=== PATIENT | female | born 1975 | race Caucasian/White ===

== ENCOUNTER 2024-07-10 08:54 | Emergency (ER) | payer MEDICAID ==
[2024-07-10] MEDS: Nitroglycerin 0.4 MG Tab.SL SL ONE (09:06)
[2024-07-10 09:13] LABS: BASOPHILS ABSOLUTE AUTO 0.05 10^3/uL (0.00-0.50); BASOPHILS PERCENT AUTO 0.4 % (0-1); EOSINOPHILS ABSOLUTE AUTO 0.13 10^3/uL (0.00-1.50); HEMATOCRIT 44.9 % (37.0-47.0); HEMOGLOBIN 14.6 g/dL (12.0-16.0); IMMATURE GRAN ABSOLUTE AUTO 0.02 10^3/uL (0.00-0.49); IMMATURE GRAN PERCENT AUTO 0.2 % (0.0-4.9); LYMPHOCYTES ABSOLUTE AUTO 3.42 10^3/uL (0.60-5.00); LYMPHOCYTES PERCENT AUTO 26.6 % (24-44); MEAN CORPUSCULAR HEMOGLOBIN 27.2 pg (27.0-32.0); MEAN CORPUSCULAR HGB CONC 32.5 g/dL (32.0-36.0); MEAN CORPUSCULAR VOLUME 83.6 fL (83.0-97.0); NEUTROPHILS ABSOLUTE AUTO 8.32 x10^3/uL (1.80-8.00); NEUTROPHILS PERCENT AUTO 64.8 % (41-71); PLATELET COUNT,PLT 372 10^3/uL (150-400); RED BLOOD CELL COUNT 5.37 x10^6/uL (4.00-5.50); WHITE BLOOD CELL COUNT,WBC 12.8 10^3/uL (4.0-11.0)
[2024-07-10 09:25] LABS: APPEARANCE,URINE CLEAR (CLEAR); BILIRUBIN,URINE NEGATIVE (NEGATIVE); COLOR,URINE YELLOW (YELLOW); GLUCOSE,URINE 500 mg/dL (NEGATIVE); KETONES,URINE NEGATIVE (NEGATIVE); LEUKOCYTE ESTERASE,URINE NEGATIVE (NEGATIVE); NITRITE,URINE NEGATIVE (NEGATIVE); OCCULT BLOOD,URINE NEGATIVE (NEGATIVE); PH,URINE 7.5 (4.5-8.0); PROTEIN,URINE NEGATIVE (NEGATIVE); UROBILINOGEN,URINE 0.2 EU/dL (0.2-1.0)
[2024-07-10 09:29] LABS: ALANINE AMINOTRANSFERASE,ALT 29 U/L (12-78); ALBUMIN 3.6 g/dL (3.4-5.0); ALKALINE PHOSPHATASE 119 U/L (46-116); ASPARTATE AMNIOTRANSFERASE,AST 11 U/L (15-37); BILIRUBIN TOTAL 0.2 mg/dL (0.0-1.0); BLOOD UREA NITROGEN,BUN 23 mg/dL (7-18); CALCIUM 9.3 mg/dL (8.4-10.1); CARBON DIOXIDE,CO2 30 mmol/L (21-32); CHLORIDE,CL 98 mEq/L (98-106); CREATININE 0.8 mg/dL (0.6-1.0); LIPASE 80 U/L (16-77); MAGNESIUM 1.7 mg/dL (1.8-2.4); POTASSIUM,K 4.1 mEq/L (3.5-5.0); PROTEIN TOTAL,TP 7.8 g/dL (6.4-8.2); SODIUM,NA 137 mEq/L (136-145)
[2024-07-10 09:32] LABS: ESTIMATED GFR 92 mL/min (>=60); GLUCOSE RANDOM 319 mg/dL (75-99)
[2024-07-10 09:35] LABS: INR 0.93 (0.92-1.18); PROTHROMBIN TIME 9.8 SEC (9.3-11.3); PTT,PARTIAL THROMBOPLSTIN TIME 23.8 SEC (20.0-30.0)
[2024-07-10] MEDS ORDERED: Naloxone 2 MG/2 ML Syringe IVPUSH PRN (09:36)
[2024-07-10] MEDS: Morphine 2 MG/ML SYRINGE IVPUSH ONE (09:57)
== END 2024-07-10 10:45 | disposition home or self-care (01) ==
LOC: CC.ED 08:54
DX: R07.89 Other chest pain (principal); I10 Essential (primary) hypertension; Z86.73 Personal history of transient ischemic attack (TIA), and cerebral infarction without residual deficits; E11.9 Type 2 diabetes mellitus without complications; Z79.899 Other long term (current) drug therapy
CPT/HCPCS: 36415; 71045; 80053; 81003; 83690; 83735; 84484; 85025; 85610; 85730; 93005; 93010; 96374; 99284; 99285-25; A9270-GY; J2270

== ENCOUNTER 2024-07-22 09:18 | Emergency (ER) | payer MEDICAID ==
[2024-07-22] MEDS: Etomidate 2 MG/ML 10 ML SDV IVPUSH ONE (09:35)
[2024-07-22] MEDS: Succinylcholine 200 MG/10 ML MDV IVPUSH STA (09:37)
[2024-07-22 09:39] LABS: O2 DELIVERY DEVICE RESUSCITATION BAG
[2024-07-22 09:41] LABS: BASE EXCESS ARTERIAL -9.3 (-2.0-3.0); O2 SATURATION ARTERIAL 100 % (95-98); PCO2 ARTERIAL 34 mm/Hg0 (35-45); PH,ARTERIAL 7.31 (7.35-7.45); PO2 ARTERIAL 565 mm/Hg (80-100)
[2024-07-22] MEDS: propofoL 1,000 MG/100 ML 100 ML IV SCH (09:44)
[2024-07-22 09:48] LABS: BASOPHILS ABSOLUTE AUTO 0.04 10^3/uL (0.00-0.50); BASOPHILS PERCENT AUTO 0.3 % (0-1); EOSINOPHILS ABSOLUTE AUTO 0.17 10^3/uL (0.00-1.50); EOSINOPHILS PERCENT AUTO 1.2 % (0-6); HEMATOCRIT 49.5 % (37.0-47.0); HEMOGLOBIN 15.9 g/dL (12.0-16.0); IMMATURE GRAN ABSOLUTE AUTO 0.24 10^3/uL (0.00-0.49); IMMATURE GRAN PERCENT AUTO 1.8 % (0.0-4.9); LYMPHOCYTES ABSOLUTE AUTO 8.13 10^3/uL (0.60-5.00); LYMPHOCYTES PERCENT AUTO 59.3 % (24-44); MEAN CORPUSCULAR HEMOGLOBIN 27.2 pg (27.0-32.0); MEAN CORPUSCULAR HGB CONC 32.1 g/dL (32.0-36.0); MEAN CORPUSCULAR VOLUME 84.8 fL (83.0-97.0); MONOCYTES ABSOLUTE AUTO 0.63 10^3/uL (0.00-1.50); MONOCYTES PERCENT AUTO 4.6 % (0-10); NEUTROPHILS ABSOLUTE AUTO 4.49 x10^3/uL (1.80-8.00); NEUTROPHILS PERCENT AUTO 32.8 % (41-71); PLATELET COUNT,PLT 424 10^3/uL (150-400); RED BLOOD CELL COUNT 5.84 x10^6/uL (4.00-5.50); WHITE BLOOD CELL COUNT,WBC 13.7 10^3/uL (4.0-11.0)
[2024-07-22] MEDS: Rocuronium 50 MG/5 ML Vial IVPUSH ONE (09:52)
[2024-07-22 09:58] LABS: INR 0.96 (0.92-1.18); PROTHROMBIN TIME 10.1 SEC (9.3-11.3)
[2024-07-22 10:09] LABS: ALBUMIN 3.6 g/dL (3.4-5.0); ALKALINE PHOSPHATASE 135 U/L (46-116); AMYLASE 40 U/L (25-115); BILIRUBIN TOTAL 0.4 mg/dL (0.0-1.0); BLOOD UREA NITROGEN,BUN 28 mg/dL (7-18); CALCIUM 9.6 mg/dL (8.4-10.1); CARBON DIOXIDE,CO2 19 mmol/L (21-32); CHLORIDE,CL 98 mEq/L (98-106); CREATININE 1.1 mg/dL (0.6-1.0); POTASSIUM,K 3.1 mEq/L (3.5-5.0); PROTEIN TOTAL,TP 7.9 g/dL (6.4-8.2); SODIUM,NA 137 mEq/L (136-145)
[2024-07-22 10:11] LABS: ESTIMATED GFR 63 mL/min (>=60); GLUCOSE RANDOM 375 mg/dL (75-99)
[2024-07-22 10:12] LABS: ALANINE AMINOTRANSFERASE,ALT 446 U/L (12-78); ASPARTATE AMNIOTRANSFERASE,AST 393 U/L (15-37)
[2024-07-22] MEDS: Aspirin 300 MG Supp RECTAL STA (10:20)
[2024-07-22 10:26] LABS: MAGNESIUM 2.2 mg/dL (1.8-2.4)
[2024-07-22] MEDS: Heparin Sodium 5,000 Units/ML Vial IVPUSH ONE (10:36)
[2024-07-22] MEDS: Heparin Sodium/0.45% NaCl 500 ML IV SCH (10:44)
[2024-07-22] MEDS: Tenecteplase 50 MG Kit IVPUSH STA (10:50)
[2024-07-22] MEDS: Potassium Chloride Riders 20 MEQ in Premix Bag 1 BAG IV ONE ×2 (10:55→11:16)
[2024-07-22] MEDS: Midazolam 1 MG/ML 2 ML SDV IVPUSH ONE ×2 (11:05→11:30)
[2024-07-22] MEDS: Clopidogrel 75 MG Tab PO ONE (11:10)
[2024-07-22] MEDS: Aspirin 300 MG Supp ONE (12:25)
[2024-07-22] MEDS: Amiodarone 150 MG/3 ML SDV ONE (12:27)
[2024-07-22] MEDS: AMIODARONE ONE ×2 (12:47)
[2024-07-22] MEDS: propofoL 1,000 MG/100 ML 100 ML ONE (16:38)
[2024-07-22] MEDS: propofoL 1,000 MG/100 ML 0 ML ONE (16:38)
[2024-07-22] MEDS: Norepinephrine Bit/D5W Premix 0 ML ONE (16:39)
[2024-07-22] MEDS: Clopidogrel 75 MG Tab ONE (16:39)
[2024-07-22] MEDS: Succinylcholine 200 MG/10 ML MDV ONE (17:00)
[2024-07-22] MEDS: Midazolam 1 MG/ML 2 ML SDV ONE ×2 (17:00→17:07)
[2024-07-22] MEDS: Tenecteplase 50 MG Kit ONE (17:00)
[2024-07-22] MEDS: Rocuronium 50 MG/5 ML Vial ONE (17:07)
== END 2024-07-22 11:35 ==
LOC: CC.ED 09:18 → MERGE 09:18 → EDBD 09:18 → CC.ED 11:35
DX: I46.9 Cardiac arrest, cause unspecified (principal); I21.3 ST elevation (STEMI) myocardial infarction of unspecified site
CPT/HCPCS: 31500; 36415; 36600; 51702; 71045; 80053; 82150; 82803; 83605; 83735; 84484; 85025; 85610; 85730; 87040; 92950; 93005; 93010; 96365; 96368; 96375; 99291; 99292; A9270; J0330; J1644; J2250; J2704; J3101; J3480; J3490

== ENCOUNTER 2024-11-12 14:15 | Emergency (ER) | payer MEDICAID ==
[2024-11-12 14:44] LABS: BASOPHILS ABSOLUTE AUTO 0.03 10^3/uL (0.00-0.50); BASOPHILS PERCENT AUTO 0.2 % (0-1); EOSINOPHILS ABSOLUTE AUTO 0.12 10^3/uL (0.00-1.50); EOSINOPHILS PERCENT AUTO 0.6 % (0-6); HEMATOCRIT 39.8 % (37.0-47.0); HEMOGLOBIN 12.9 g/dL (12.0-16.0); IMMATURE GRAN ABSOLUTE AUTO 0.03 10^3/uL (0.00-0.49); IMMATURE GRAN PERCENT AUTO 0.2 % (0.0-4.9); LYMPHOCYTES ABSOLUTE AUTO 2.75 10^3/uL (0.60-5.00); LYMPHOCYTES PERCENT AUTO 14.4 % (24-44); MEAN CORPUSCULAR HEMOGLOBIN 26.6 pg (27.0-32.0); MEAN CORPUSCULAR HGB CONC 32.4 g/dL (32.0-36.0); MEAN CORPUSCULAR VOLUME 82.1 fL (83.0-97.0); MONOCYTES ABSOLUTE AUTO 1.26 10^3/uL (0.00-1.50); MONOCYTES PERCENT AUTO 6.6 % (0-10); NEUTROPHILS ABSOLUTE AUTO 14.86 x10^3/uL (1.80-8.00); PLATELET COUNT,PLT 437 10^3/uL (150-400); RED BLOOD CELL COUNT 4.85 x10^6/uL (4.00-5.50); WHITE BLOOD CELL COUNT,WBC 19.1 10^3/uL (4.0-11.0)
[2024-11-12 14:47] LABS: C-REACTIVE PROTEIN 1.1 mg/dL (<=0.50)
[2024-11-12 14:54] LABS: ALANINE AMINOTRANSFERASE,ALT 25 U/L (12-78); ALBUMIN 3.3 g/dL (3.4-5.0); ALKALINE PHOSPHATASE 93 U/L (46-116); ASPARTATE AMNIOTRANSFERASE,AST 9 U/L (15-37); BILIRUBIN TOTAL 0.4 mg/dL (0.0-1.0); BLOOD UREA NITROGEN,BUN 15 mg/dL (7-18); CALCIUM 8.9 mg/dL (8.4-10.1); CARBON DIOXIDE,CO2 30 mmol/L (21-32); CHLORIDE,CL 100 mEq/L (98-106); CREATININE 0.7 mg/dL (0.6-1.0); GLUCOSE RANDOM 182 mg/dL (75-99); POTASSIUM,K 3.8 mEq/L (3.5-5.0); PROTEIN TOTAL,TP 7.2 g/dL (6.4-8.2); SODIUM,NA 139 mEq/L (136-145)
[2024-11-12 14:57] LABS: ESTIMATED GFR 108 mL/min (>=60)
[2024-11-12 15:15] LABS: INR 0.95 (0.92-1.18); PTT,PARTIAL THROMBOPLSTIN TIME 21.1 SEC (20.0-30.0)
[2024-11-12] MEDS: Iopamidol 755 Mg/ML 100 ML Bottle IVPUSH ONE (15:33)
[2024-11-12 17:18] LABS: APPEARANCE,URINE CLEAR (CLEAR); BILIRUBIN,URINE NEGATIVE (NEGATIVE); COLOR,URINE YELLOW (YELLOW); GLUCOSE,URINE NEGATIVE (NEGATIVE); KETONES,URINE TRACE mg/dL (NEGATIVE); LEUKOCYTE ESTERASE,URINE NEGATIVE (NEGATIVE); NITRITE,URINE POSITIVE (NEGATIVE); OCCULT BLOOD,URINE LARGE (NEGATIVE); PROTEIN,URINE 30 mg/dL (NEGATIVE); UROBILINOGEN,URINE 0.2 EU/dL (0.2-1.0)
[2024-11-12 17:27] LABS: BACTERIA,URINE FEW /HPF (NOT SEEN); EPITHELIAL CELLS,URINE MODERATE /HPF (NOT SEEN); RBC,URINE 30-40 /HPF (0-5); WBC,URINE 0-5 /HPF (0-5)
[2024-11-12] MEDS: cefTRIAXone 2 GM Vial IVPUSH ONE (18:25)
== END 2024-11-12 19:20 | disposition home or self-care (01) ==
LOC: CC.ED 14:15
DX: N30.01 Acute cystitis with hematuria (principal); I10 Essential (primary) hypertension; E78.00 Pure hypercholesterolemia, unspecified; E11.9 Type 2 diabetes mellitus without complications; Z79.82 Long term (current) use of aspirin; Z79.899 Other long term (current) drug therapy; Z79.84 Long term (current) use of oral hypoglycemic drugs; Z86.73 Personal history of transient ischemic attack (TIA), and cerebral infarction without residual deficits
CPT/HCPCS: 36415; 71045; 71046; 74177; 80053; 81001; 83690; 84484; 84703; 85025; 85610; 85730; 86140; 93005; 96374; 99285-25; J0696; Q9967